=== PATIENT | female | born 1995 | race African-American/Black ===

== ENCOUNTER 2024-04-16 14:51 | Emergency (ER) | payer SELFPAY ==
[2024-04-16 15:34] VITALS: BP 121/79
--- NOTE | 2024-04-16 17:08 | ED.GENMED ---
History of Present Illness
General
Chief Complaint: Musculo-Skeletal Complaint
Source: patient
Exam Limitations: none
Time Seen by Provider: 04/16/24 16:17
Nursing documentation reviewed up to this point in time: agreed with
History of Present Illness
History of Present Illness:
28-year-old female without significant past medical history presenting to the emergency department after inverting her left ankle prior to arrival after getting off the toilet. Unable to weight-bear since secondary to pain. Denies any numbness
weakness or additional injuries.
Review of Systems
Review of Systems
Allergies reviewed?: Yes
All Other Systems: ROS reviewed and negative except as documented in HPI and ROS
Phy Exam
Physical Exam
Physical Exam:
GENERAL: Alert , in no apparent distress
EYE: pupils equal and reactive
NECK: Supple, no significant adenopathy.
ENT: o/p clr, mmm.
CARDIAC: Regular rate and rhythm .
LUNGS: Clear breath sounds bilaterally, no acute respiratory distress, no wheezes/rales/rhonchi
ABDOMEN: Soft, without focal tenderness, no r/g, no cvat
NEUROLOGICAL: Alert and oriented, no focal neuro deficits
SKIN: Warm and dry, skin intact.
MUSCULOSKELETAL: Swelling and tenderness palpation to the left lateral malleolus mainly anteriorly no pain to the base of the fifth metatarsal or the mid or forefoot. No tenderness to the tib-fib or knee., well perfused.
PSYCH: Normal and appropriate interaction.
Course
Orders/Labs/Results
Orders:
Orders
04/16/24 15:35
CR Ankle - Left Min 3 Views Urgent
Comment:
Reason For Exam: pain
Vital Signs
Initial and Last Documented VS:
Initial Vital Signs
Temp Pulse Resp Pulse Ox
98.1 F 73 20 100
04/16/24 15:31 04/16/24 15:31 04/16/24 15:31 04/16/24 15:31
Last Documented Vital Signs
Temp Pulse Resp BP Pulse Ox
98.1 F 81 20 121/79 100
04/16/24 15:31 04/16/24 15:34 04/16/24 15:34 04/16/24 15:34 04/16/24 15:34
MDM/Problems Addressed
MDM/Problems Addressed:
28-year-old female presenting to the emergency department today with concerns of left-sided ankle discomfort after twisting her ankle getting off the toilet prior to arrival. Unable to ambulate since secondary to pain. On examination patient
mainly has tenderness to the anterior aspect of the lateral malleolus with mild swelling no tenderness to the foot midfoot forefoot. Signs of fracture. There was a well-corticated bone fragment at the base of the fifth metatarsal but patient does
not have any pain to this area so likely represent avulsion fracture. Patient symptoms appear to be consistent with ankle sprain. Plan for symptomatic treatment and orthopedic follow-up as needed. Return precautions given.
*Critical Care Note
Total Time (30-74mins, 75-104mins- exclusive of procedures): Not Applicable
ED Attending Note
-
Portions of this chart may have been created with voice recognition software.� Occasional wrong word or��sound alike� substitutions may have occurred due to the inherent limitations of voice recognition software.
Discharge Plan
Departure
Patient Disposition: Home (Routine Discharge)
Date of Disposition: 04/16/24
Time of Disposition: 17:11
Patient with high blood pressure during this ER visit?: No
Condition: Good
Covid-19: Not Applicable
Discharge Problem:
Ankle sprain
Instructions: Ankle Sprain ED
Referrals:
Jeremiah Cunha MD [Active] - Follow up in 5-7 days
UNKNOWN - PT DOES,NOT KNOW [Family Provider] -
Stand Alone Forms: Return to Work
Activity Restrictions/Additional Instructions:
You came to the emergency department today with concerns of an ankle injury. Here you had a normal x-ray without signs of fracture. Please rest ice compress and elevate and follow-up closely with orthopedics for further recommendations if symptoms
are persisting. Return to the emergency department for any worsening, new or concerning symptoms.
Interventions
Interventions:
*Risk Screen - Suicide Last Done: 04/16/24 15:31
*General Assessment Last Done: 04/16/24 15:31
*Neglect/Abuse Screening Last Done: 04/16/24 15:31
ED-Musculoskeletal Assessment Last Done: 04/16/24 16:22
Discharge Date and Time
Print Language: GAMBIAN
[2024-04-16] MEDS: MOTRIN 600 MG PO (17:21)
[2024-04-16 17:39] VITALS: BP 120/78
== END 2024-04-16 17:40 | disposition home or self-care (01) ==
LOC: EMR 14:51
PROVIDERS: EMERGENCY PHYSICIAN Emergency Medicine
DX: S93.402A Sprain of unspecified ligament of left ankle, initial encounter (principal); X50.1XXA Overexertion from prolonged static or awkward postures, initial encounter
CPT/HCPCS: 99283; 73610